=== PATIENT | male | born 1935 | race Caucasian/White ===

== ENCOUNTER → 2019-06-01 | Outpatient (CLI) | payer MEDICARE, OTHER, SELFPAY ==
--- NOTE | 2019-06-01 13:37 | CT_ITS ---
CT of the temporal bones. CLINICAL HISTORY: Neurosensory hearing loss. PROCEDURE: The study was done without contrast and presented in multiple planes. FINDINGS: The right temporal bone is normal. The following are in reference to the left temporal bone. External auditory canal: Canal size: Normal Canal tapia: Normal. No erosions. Canal lumen: Clear. No abnormal attenuations Tympanic membrane: Intact. Scutum: Normal. No erosions Tympanic annulus: Normal Middle ear: Prussak's space: Clear Cochlear promontory: Normal Ossicular structures: Normal Tegmen tympani and arcuate eminence: Intact. No dehiscence. Tegmen mastoideum, aditus ad antrum, mastoid antrum and mastoid air cells: Normal Facial recess,. pyramidal eminence, sinus tympani: Normal. Inner Ear: (Vestibulocochlear apparatus) Round window: Normal Oval window: Normal Semicircular canals: Dehiscence of the left superior semicircular canal Vestibule (utricle and sacule): Normal Vestibular aqueduct: Normal Cochlea: Normal. Internal auditory canal: Geena falciformis: Normal Internal auditory canal: No abnormal attenuation Cerebellopontine angle: Normal Facial nerve: Tympanic, labyrinthine and mastoid segments: Normal Petrous apex: Normal CT/Orb Sella Post Fossa Ear w/o IMPRESSION: The right temporal bone is normal. Dehiscence of the left superior semicircular canal Electronically Signed: Lokesh Recinos MD at 0:34 EDT Tel , Service support ,
== END | disposition home or self-care (01) ==
LOC: CT 13:34
PROVIDERS: Referring Provider Otolaryngology; Visit Provider Otolaryngology
DX: H90.5 Unspecified sensorineural hearing loss (principal)
CPT/HCPCS: 70480